=== PATIENT | male | born 1965 | race African-American/Black ===

== ENCOUNTER 2020-09-12 08:56 | Inpatient (IN) | payer OTHER ==
[2020-09-12] MEDS ORDERED: IBUPROFEN 400 MG TABLET (FP) PO PRN (09:56)
[2020-09-12] MEDS ORDERED: MAG HYDROX/AL HYDROX/SIMETH 30 ML UNIT-DOSE CUP PO PRN (09:56)
[2020-09-12] MEDS ORDERED: NICOTINE 10 MG CARTRIDGE (INHALER) IH PRN (09:56)
[2020-09-12] MEDS ORDERED: MAGNESIUM CITRATE 300 ML BOTTLE PO PRN (09:56)
[2020-09-12] MEDS ORDERED: MAGNESIUM HYDROX 2400MG/30ML ORAL SUSPENSION 30 ML CUP PO PRN (09:56)
[2020-09-12] MEDS ORDERED: BISMUTH SUBSALICYLATE 262 MG/15 ML BTL PO PRN (09:56)
[2020-09-12] MEDS ORDERED: ACETAMINOPHEN 325 MG TABLET (FP) PO PRN ×2 (09:56)
[2020-09-12] MEDS ORDERED: MENTHOL/PHENOL 1 EACH UD MM PRN (09:56)
[2020-09-12] MEDS ORDERED: ONDANSETRON *ODT* 4 MG TABLET SL PRN (09:56)
[2020-09-12] MEDS ORDERED: METHOCARBAMOL 500 MG TABLET PO PRN (09:56)
[2020-09-12 09:57] VITALS: BMI 39.2
[2020-09-12] MEDS ORDERED: PRENATAL VITAMINS W/ FOLIC ACID TABLET (FP) PO SCH (10:00)
[2020-09-12] MEDS ORDERED: methaDONE HCL 10 MG TABLET PO SCH (10:15)
[2020-09-12] MEDS ORDERED: diazePAM 5 MG TABLET ONE ×2 (10:32→14:51)
[2020-09-12] MEDS: diazePAM 5 MG TABLET PO PRN ×2 (10:35→14:52)
[2020-09-12] MEDS ORDERED: methaDONE HCL 10 MG TABLET PO ONE (11:31)
[2020-09-12] MEDS ORDERED: methaDONE HCL 10 MG TABLET ONE (11:44)
[2020-09-12] MEDS ORDERED: methaDONE HCL 40 MG DISPERSABLE TABLET ONE (11:45)
[2020-09-12] MEDS: diazePAM 5 MG TABLET PO SCH ×3 (11:53→23:16)
[2020-09-12] MEDS: hydrOXYzine PAMOATE 25 MG CAPSULE (FP) PO SCH ×4 (11:54→23:16)
[2020-09-12 13:25] LABS: HEMATOCRIT 40.6 % (35.4-49); MCHC 34.6 g/dl (32.0-35.9); MEAN CELL VOLUME 95.5 fl (80-96); PLATELET COUNT 270 10^3/uL (134-434); RBC 4.26 M/mm3 (4.00-5.60); RDW 14.3 % (11.9-15.9); WHITE BLOOD COUNT 5.5 K/mm3 (4.0-10.0)
[2020-09-12 13:41] LABS: ALBUMIN 3.8 g/dl (3.4-5.0); BLOOD UREA NITROGEN 3.7 mg/dL (7-18); CALCIUM 7.8 mg/dL (8.5-10.1)
[2020-09-12 13:44] LABS: BILIRUBIN,TOTAL 0.3 mg/dL (0.2-1); CREATININE 0.8 mg/dL (0.55-1.3); TOT PROT 7.6 g/dl (6.4-8.2)
[2020-09-12] MEDS ORDERED: hydrOXYzine PAMOATE 25 MG CAPSULE (FP) PO ONE (14:51)
[2020-09-12] MEDS ORDERED: NIFEdipine E.R. 90 MG TABLET PO SCH (16:00)
[2020-09-12] MEDS ORDERED: ASPIRIN 81 MG CHEWABLE TABLETS PO SCH (17:45)
[2020-09-12 18:07] VITALS: BP 201/101; PULSE 126; TEMP 96.2
[2020-09-12] MEDS ORDERED: QUEtiapine FUMARATE 50 MG TABLET PO SCH (22:00)
[2020-09-12] MEDS ORDERED: MELATONIN 5 MG TABLETS PO SCH (22:00)
[2020-09-12] MEDS ORDERED: THIAMINE HCL 100 MG TABLET (FP) PO SCH (22:00)
[2020-09-13] MEDS ORDERED: methaDONE HCL 10 MG TABLET PO SCH (06:00)
[2020-09-13] MEDS ORDERED: ONDANSETRON *ODT* 4 MG TABLET SL PRN (08:04)
[2020-09-13] MEDS ORDERED: ACETAMINOPHEN 325 MG TABLET (FP) PO PRN ×2 (08:04)
[2020-09-13] MEDS ORDERED: IBUPROFEN 400 MG TABLET (FP) PO PRN (08:04)
[2020-09-13] MEDS ORDERED: MENTHOL/PHENOL 1 EACH UD MM PRN (08:04)
[2020-09-13] MEDS ORDERED: BISMUTH SUBSALICYLATE 524 MG/30 ML PO PRN (08:04)
[2020-09-13] MEDS ORDERED: MAG HYDROX/AL HYDROX/SIMETH 30 ML UNIT-DOSE CUP PO PRN (08:04)
[2020-09-13] MEDS ORDERED: NICOTINE 10 MG CARTRIDGE (INHALER) IH PRN (08:04)
[2020-09-13] MEDS ORDERED: MAGNESIUM CITRATE 300 ML BOTTLE PO PRN (08:04)
[2020-09-13] MEDS ORDERED: MAGNESIUM HYDROX 2400MG/30ML ORAL SUSPENSION 30 ML CUP PO PRN (08:04)
[2020-09-13] MEDS ORDERED: diazePAM 5 MG TABLET PO PRN (08:04)
[2020-09-13] MEDS ORDERED: METHOCARBAMOL 500 MG TABLET PO PRN (08:04)
[2020-09-13] MEDS ORDERED: PRENATAL VITAMINS W/ FOLIC ACID TABLET (FP) PO SCH (10:00)
[2020-09-13] MEDS ORDERED: hydrOXYzine PAMOATE 25 MG CAPSULE (FP) PO SCH (10:00)
[2020-09-13] MEDS ORDERED: diazePAM 5 MG TABLET PO SCH (11:00)
[2020-09-13] MEDS ORDERED: MELATONIN 5 MG TABLETS PO SCH (22:00)
[2020-09-13] MEDS ORDERED: THIAMINE HCL 100 MG TABLET (FP) PO SCH (22:00)
[2020-09-14] MEDS ORDERED: diazePAM 5 MG TABLET PO SCH (06:00)
[2020-09-15] MEDS ORDERED: diazePAM 5 MG TABLET PO SCH ×2 (06:00)
[2020-09-16] MEDS ORDERED: diazePAM 5 MG TABLET PO ONE (06:00)
[2020-09-16] MEDS ORDERED: diazePAM 5 MG TABLET PO SCH (06:00)
[2020-09-17] MEDS ORDERED: diazePAM 5 MG TABLET PO ONE (06:00)
== END 2020-09-12 23:42 | disposition short-term general hospital (02) | DRG 773 ==
LOC: YASAS 08:56 → Y3N 14:32
PROVIDERS: ADMIT Allergy & Immunology; ATTEND Allergy & Immunology
PROC: HZ2ZZZZ Detoxification Services for Substance Abuse Treatment (ICD-10-PCS; principal; 2020-09-12)
DX: F10.230 Alcohol dependence with withdrawal, uncomplicated (principal); F11.20 Opioid dependence, uncomplicated; F17.210 Nicotine dependence, cigarettes, uncomplicated; F19.24 Other psychoactive substance dependence with psychoactive substance-induced mood disorder; F31.9 Bipolar disorder, unspecified; I10 Essential (primary) hypertension; E78.5 Hyperlipidemia, unspecified; G47.00 Insomnia, unspecified; R00.0 Tachycardia, unspecified; E66.9 Obesity, unspecified; Z68.39 Body mass index [BMI] 39.0-39.9, adult; Z86.69 Personal history of other diseases of the nervous system and sense organs; Z56.0 Unemployment, unspecified; Z59.0 Homelessness
CPT/HCPCS: 36415; 80053; 85027; 86780; 93005; 93010; C9803; U0003; U0005

== ENCOUNTER 2020-09-12 18:36 | Inpatient (IN) | payer OTHER ==
[2020-09-12 18:59] VITALS: BMI 38.4
[2020-09-12] MEDS ORDERED: LORazepam 2 MG/ML SDV VIAL IVPUSH ONE ×2 (19:14→21:02)
[2020-09-12] MEDS ORDERED: FOLIC ACID INJECTION - 1 MG, THIAMINE HCL 100 MG, MULTIVIT INJECTION ADULT 10 ML in SOD... IVPB ONE (19:14)
[2020-09-12] MEDS ORDERED: LORazepam 2 MG/ML SDV VIAL ONE ×2 (19:36→21:08)
[2020-09-12 19:53] LABS: BASO % 0.9 % (0-2.0); EOS % 0.2 % (0-4.5); HEMATOCRIT 41.4 % (35.4-49); HEMOGLOBIN 14.4 GM/dL (11.7-16.9); LYMPH % 16.2 % (8-40); MCH 32.4 pg (25.7-33.7); MCHC 34.8 g/dl (32.0-35.9); MEAN CELL VOLUME 93.1 fl (80-96); MEAN PLT VOLUME 6.7 fl (7.5-11.1); MONO % 4.1 % (3.8-10.2); NEUT % 78.6 % (42.8-82.8); PLATELET COUNT 243 10^3/uL (134-434); RBC 4.44 M/mm3 (4.00-5.60); WHITE BLOOD COUNT 6.5 K/mm3 (4.0-10.0)
[2020-09-12 20:12] LABS: CHLORIDE 100 mmol/L (98-107); SODIUM 138 mmol/L (136-145)
[2020-09-12 20:14] LABS: CALCIUM 8.6 mg/dL (8.5-10.1)
[2020-09-12 20:15] LABS: ALBUMIN 3.9 g/dl (3.4-5.0); ANION GAP 10 MMOL/L (8-16); BLOOD UREA NITROGEN 4.3 mg/dL (7-18); CO2 28 mmol/L (21-32); GLUCOSE,RANDOM 79 mg/dL (74-106); MAGNESIUM 1.6 mg/dL (1.8-2.4)
[2020-09-12 20:18] LABS: CREATININE 0.9 mg/dL (0.55-1.3); SGOT/AST 61 U/L (15-37)
[2020-09-12 20:19] LABS: BILIRUBIN,TOTAL 0.6 mg/dL (0.2-1); TOT PROT 8.1 g/dl (6.4-8.2)
[2020-09-12 20:38] LABS: ALK PHOS 213 U/L (45-117); SGPT/ALT 58 U/L (13-61)
[2020-09-12] MEDS ORDERED: MAGNESIUM SULF 50% (8.12 MEQ/2 ML-1 GM VIAL) IVPB ONE (21:27)
[2020-09-12] MEDS ORDERED: MAGNESIUM SULFATE IN WATER 2 GM/50 ML IVPB IVPB ONE (21:54)
[2020-09-12] MEDS ORDERED: NIFEdipine E.R. 90 MG TABLET PO ONE (22:12)
[2020-09-12] MEDS ORDERED: NIFEdipine E.R. 30 MG TABLET ONE (22:12)
[2020-09-12 22:13] LABS: PH,URINE >= 9.0 (5.0-8.0); URINE APPEARANCE CLEAR; URINE BILIRUBIN NEGATIVE (NEGATIVE); URINE COLOR YELLOW; URINE GLUCOSE (UA) NEGATIVE (NEGATIVE); URINE KETONE NEGATIVE (NEGATIVE); URINE LEUK ESTERASE NEGATIVE (NEGATIVE); URINE NITRITE NEGATIVE (NEGATIVE); URINE PROTEIN NEGATIVE (NEGATIVE); URINE UROBILINOGEN 0.2 mg/dL (0.2-1.0)
[2020-09-13] MEDS: LORazepam 2 MG/ML SDV VIAL IVPUSH PRN ×2 (00:37→04:49)
[2020-09-13] MEDS: LACTATED RINGERS SOLUTION 1,000 ML/1,000 ML INFUS.BAG IV SCH ×2 (00:40→04:34)
[2020-09-13] MEDS: THIAMINE HCL 200 MG/2 ML VIAL IVPB SCH ×2 (02:33→09:06)
[2020-09-13] MEDS ORDERED: [UNRECOGNIZED DRUG - OTHER] IVPB ONE (03:30)
[2020-09-13] MEDS ORDERED: THIAMINE HCL IVPB ONE (03:30)
[2020-09-13] MEDS ORDERED: FOLIC ACID IVPB ONE (03:30)
[2020-09-13] MEDS ORDERED: MULTIVIT IVPB ONE (03:30)
[2020-09-13] MEDS ORDERED: methaDONE HCL 40 MG DISPERSABLE TABLET ONE (07:49)
[2020-09-13] MEDS ORDERED: methaDONE HCL 10 MG TABLET ONE (07:50)
[2020-09-13] MEDS ORDERED: methaDONE HCL 10 MG TABLET PO ONE (08:00)
[2020-09-13 08:30] LABS: HEMATOCRIT 40.7 % (35.4-49); HEMOGLOBIN 14.2 GM/dL (11.7-16.9); MCH 32.9 pg (25.7-33.7); MCHC 34.9 g/dl (32.0-35.9); MEAN CELL VOLUME 94.4 fl (80-96); MEAN PLT VOLUME 7.2 fl (7.5-11.1); PLATELET COUNT 211 10^3/uL (134-434); RBC 4.32 M/mm3 (4.00-5.60); RDW 13.9 % (11.9-15.9)
[2020-09-13 08:48] LABS: ALBUMIN 3.3 g/dl (3.4-5.0); MAGNESIUM 2.2 mg/dL (1.8-2.4)
[2020-09-13 08:49] LABS: BLOOD UREA NITROGEN 4.8 mg/dL (7-18); CALCIUM 7.8 mg/dL (8.5-10.1)
[2020-09-13 08:51] LABS: CREATININE 0.7 mg/dL (0.55-1.3)
[2020-09-13 08:53] LABS: TOT PROT 6.8 g/dl (6.4-8.2)
[2020-09-13] MEDS: NIFEdipine E.R 60 MG TABLET PO SCH (09:06)
[2020-09-13] MEDS: DOCUSATE SODIUM 100 MG CAPSULE (FP) PO SCH ×2 (09:07→21:11)
[2020-09-13] MEDS: LORazepam 1 MG TABLET PO PRN ×4 (09:25→22:01)
[2020-09-13] MEDS ORDERED: LORazepam 1 MG TABLET PO ONE (10:00)
[2020-09-13] MEDS: POLYETHYLENE GLYCOL (HEALTHYLAX) 3350 17 GM PACKET PO SCH (10:15)
[2020-09-13] MEDS ORDERED: LORazepam 1 MG TABLET PO PRN (11:00)
[2020-09-13] MEDS: LORazepam 1 MG TABLET PO SCH ×3 (11:28→22:01)
[2020-09-13] MEDS ORDERED: SODIUM CHLORIDE 1,000 ML IV SCH (13:00)
[2020-09-13] MEDS ORDERED: GLYCERIN 1 RECTAL SUPPOSITORY, ADULT PR ONE ×2 (15:57→19:39)
[2020-09-13] MEDS ORDERED: amLODIPine BESYLATE 5 MG TABLET (FP) PO ONE ×2 (17:12→17:28)
[2020-09-13] MEDS: MELATONIN 5 MG TABLETS PO PRN (21:09)
[2020-09-13] MEDS: ATORVASTATIN CA 10 MG TABLET (FP) PO SCH (21:11)
[2020-09-13] MEDS ORDERED: NIFEdipine E.R. 90 MG TABLET PO ONE (21:35)
[2020-09-14] MEDS: LORazepam 1 MG TABLET PO SCH ×4 (05:11→22:09)
[2020-09-14] MEDS ORDERED: GLYCERIN 1 RECTAL SUPPOSITORY, ADULT PR ONE (06:44)
[2020-09-14] MEDS ORDERED: methaDONE HCL 40 MG DISPERSABLE TABLET ONE (07:51)
[2020-09-14] MEDS ORDERED: methaDONE HCL 10 MG TABLET ONE (07:51)
[2020-09-14 08:47] LABS: BASO % 0.5 % (0-2.0); HEMATOCRIT 41.7 % (35.4-49); HEMOGLOBIN 14.3 GM/dL (11.7-16.9); LYMPH % 34.7 % (8-40); MCH 32.7 pg (25.7-33.7); MCHC 34.3 g/dl (32.0-35.9); MEAN CELL VOLUME 95.3 fl (80-96); MEAN PLT VOLUME 7.5 fl (7.5-11.1); MONO % 7.8 % (3.8-10.2); PLATELET COUNT 206 10^3/uL (134-434); RBC 4.38 M/mm3 (4.00-5.60); RDW 13.9 % (11.9-15.9); WHITE BLOOD COUNT 5.1 K/mm3 (4.0-10.0)
[2020-09-14 09:09] LABS: MAGNESIUM 2.2 mg/dL (1.8-2.4)
[2020-09-14 09:13] LABS: PHOSPHOROUS 4.2 mg/dL (2.5-4.9)
[2020-09-14] MEDS ORDERED: PT OWN MED DRAWER 7, Y5N ONE ×2 (09:35→11:23)
[2020-09-14] MEDS: THIAMINE HCL 200 MG/2 ML VIAL IVPB SCH (09:45)
[2020-09-14] MEDS: NIFEdipine E.R 60 MG TABLET PO SCH (09:46)
[2020-09-14] MEDS: ENOXAPARIN NA (PORCINE) 40 MG/0.4 ML DISP.SYRIN SQ SCH (09:46)
[2020-09-14] MEDS: amLODIPine BESYLATE 5 MG TABLET (FP) PO SCH (09:46)
[2020-09-14] MEDS: DOCUSATE SODIUM 100 MG CAPSULE (FP) PO SCH ×2 (09:47→22:08)
[2020-09-14] MEDS: FOLIC ACID 1 MG TABLET (FP) PO SCH (09:47)
[2020-09-14] MEDS: POLYETHYLENE GLYCOL (HEALTHYLAX) 3350 17 GM PACKET PO SCH (09:47)
[2020-09-14] MEDS ORDERED: methaDONE HCL 10 MG TABLET PO ONE (10:00)
[2020-09-14] MEDS ORDERED: HYDROCHLOROTHIAZIDE 25 MG TABLET (FP) PO SCH (10:00)
[2020-09-14] MEDS ORDERED: amLODIPine BESYLATE 5 MG TABLET (FP) PO SCH (10:00)
[2020-09-14] MEDS: CYANOCOBALAMIN (VITAMIN B-12) 100 MCG TABLET PO SCH (11:28)
[2020-09-14 13:04] LABS: BLOOD UREA NITROGEN 7.6 mg/dL (7-18); CALCIUM 8.5 mg/dL (8.5-10.1)
[2020-09-14 13:09] LABS: CREATININE 0.8 mg/dL (0.55-1.3)
[2020-09-14] MEDS: SODIUM CHLORIDE 1,000 ML IV SCH (13:53)
[2020-09-14] MEDS: LORazepam 1 MG TABLET PO PRN (19:42)
[2020-09-14] MEDS: ATORVASTATIN CA 10 MG TABLET (FP) PO SCH (22:08)
[2020-09-15] MEDS: LORazepam 1 MG TABLET PO PRN ×3 (02:08→22:18)
[2020-09-15] MEDS ORDERED: methaDONE HCL 40 MG DISPERSABLE TABLET ONE (05:26)
[2020-09-15] MEDS ORDERED: methaDONE HCL 10 MG TABLET ONE (05:27)
[2020-09-15] MEDS: LORazepam 1 MG TABLET PO SCH ×4 (05:30→22:18)
[2020-09-15] MEDS ORDERED: GLYCERIN 1 RECTAL SUPPOSITORY, ADULT PR ONE (06:51)
[2020-09-15] MEDS ORDERED: PT OWN MED DRAWER 7, Y5N ONE (09:30)
[2020-09-15] MEDS: ENOXAPARIN NA (PORCINE) 40 MG/0.4 ML DISP.SYRIN SQ SCH (09:32)
[2020-09-15] MEDS: NIFEdipine E.R 60 MG TABLET PO SCH (09:32)
[2020-09-15] MEDS: POLYETHYLENE GLYCOL (HEALTHYLAX) 3350 17 GM PACKET PO SCH (09:32)
[2020-09-15] MEDS: THIAMINE HCL 100 MG TABLET (FP) PO SCH (09:33)
[2020-09-15] MEDS: FOLIC ACID 1 MG TABLET (FP) PO SCH (09:33)
[2020-09-15] MEDS: DOCUSATE SODIUM 100 MG CAPSULE (FP) PO SCH ×2 (09:33→21:29)
[2020-09-15] MEDS: amLODIPine BESYLATE 5 MG TABLET (FP) PO SCH (09:33)
[2020-09-15] MEDS: CYANOCOBALAMIN (VITAMIN B-12) 100 MCG TABLET PO SCH (09:33)
[2020-09-15 13:00] LABS: BASO % 0.9 % (0-2.0); EOS % 3.6 % (0-4.5); HEMATOCRIT 47.5 % (35.4-49); HEMOGLOBIN 16.1 GM/dL (11.7-16.9); LYMPH % 28.5 % (8-40); MCH 32.8 pg (25.7-33.7); MCHC 33.9 g/dl (32.0-35.9); MEAN CELL VOLUME 96.5 fl (80-96); MEAN PLT VOLUME 8.8 fl (7.5-11.1); PLATELET COUNT 179 10^3/uL (134-434); RBC 4.92 M/mm3 (4.00-5.60); RDW 14.4 % (11.9-15.9); WHITE BLOOD COUNT 6.3 K/mm3 (4.0-10.0)
[2020-09-15 13:08] LABS: CALCIUM 8.7 mg/dL (8.5-10.1)
[2020-09-15 13:09] LABS: ALBUMIN 3.6 g/dl (3.4-5.0); BLOOD UREA NITROGEN 11.5 mg/dL (7-18); MAGNESIUM 2.1 mg/dL (1.8-2.4)
[2020-09-15 13:12] LABS: CREATININE 0.8 mg/dL (0.55-1.3); PHOSPHOROUS 4.3 mg/dL (2.5-4.9)
[2020-09-15 13:13] LABS: TOT PROT 7.4 g/dl (6.4-8.2)
[2020-09-15] MEDS: SODIUM CHLORIDE 1,000 ML IV SCH (14:34)
[2020-09-15] MEDS: ATORVASTATIN CA 10 MG TABLET (FP) PO SCH (21:29)
[2020-09-15] MEDS: MELATONIN 5 MG TABLETS PO PRN (21:30)
[2020-09-16] MEDS ORDERED: methaDONE HCL 10 MG TABLET ONE (04:58)
[2020-09-16] MEDS ORDERED: methaDONE HCL 40 MG DISPERSABLE TABLET ONE (04:58)
[2020-09-16] MEDS: LORazepam 0.5 MG TABLET PO SCH ×4 (05:07→23:04)
[2020-09-16] MEDS: LORazepam 0.5 MG TABLET PO PRN ×2 (05:09→19:47)
[2020-09-16 07:11] LABS: BASO % 0.8 % (0-2.0); HEMATOCRIT 43.1 % (35.4-49); HEMOGLOBIN 14.4 GM/dL (11.7-16.9); LYMPH % 41.8 % (8-40); MCH 32.8 pg (25.7-33.7); MCHC 33.4 g/dl (32.0-35.9); MEAN CELL VOLUME 98.3 fl (80-96); MEAN PLT VOLUME 9.5 fl (7.5-11.1); MONO % 5.1 % (3.8-10.2); NEUT % 47.3 % (42.8-82.8); RBC 4.38 M/mm3 (4.00-5.60); RDW 14.2 % (11.9-15.9); WHITE BLOOD COUNT 3.9 K/mm3 (4.0-10.0)
[2020-09-16 07:12] LABS: PLATELET COUNT 11 10^3/uL (134-434)
[2020-09-16 07:16] LABS: ALBUMIN 3.4 g/dl (3.4-5.0); CALCIUM 8.4 mg/dL (8.5-10.1)
[2020-09-16 07:18] LABS: BLOOD UREA NITROGEN 12.7 mg/dL (7-18); MAGNESIUM 2.2 mg/dL (1.8-2.4)
[2020-09-16 07:20] LABS: CREATININE 0.8 mg/dL (0.55-1.3)
[2020-09-16 07:21] LABS: PHOSPHOROUS 4.5 mg/dL (2.5-4.9); TOT PROT 7.1 g/dl (6.4-8.2)
[2020-09-16] MEDS: DOCUSATE SODIUM 100 MG CAPSULE (FP) PO SCH ×2 (09:09→21:00)
[2020-09-16] MEDS: amLODIPine BESYLATE 5 MG TABLET (FP) PO SCH (09:10)
[2020-09-16] MEDS: NIFEdipine E.R 60 MG TABLET PO SCH (09:10)
[2020-09-16] MEDS: FOLIC ACID 1 MG TABLET (FP) PO SCH (09:10)
[2020-09-16] MEDS: POLYETHYLENE GLYCOL (HEALTHYLAX) 3350 17 GM PACKET PO SCH (09:10)
[2020-09-16] MEDS: THIAMINE HCL 100 MG TABLET (FP) PO SCH (09:10)
[2020-09-16] MEDS: ENOXAPARIN NA (PORCINE) 40 MG/0.4 ML DISP.SYRIN SQ SCH (09:10)
[2020-09-16] MEDS ORDERED: PT OWN MED DRAWER 7, Y5N ONE (09:18)
[2020-09-16] MEDS: CYANOCOBALAMIN (VITAMIN B-12) 100 MCG TABLET PO SCH (09:28)
[2020-09-16] MEDS ORDERED: BISACODYL 10 MG SUPP.RECT PR ONE (20:00)
[2020-09-16] MEDS: NICOTINE 14 MG/24 HOURS TOPICAL PATCH TD SCH (20:56)
[2020-09-16] MEDS: MELATONIN 5 MG TABLETS PO PRN (21:00)
[2020-09-16] MEDS: ATORVASTATIN CA 10 MG TABLET (FP) PO SCH (21:00)
[2020-09-17] MEDS ORDERED: methaDONE HCL 40 MG DISPERSABLE TABLET ONE (04:58)
[2020-09-17] MEDS ORDERED: methaDONE HCL 10 MG TABLET ONE (04:58)
[2020-09-17] MEDS ORDERED: LORazepam 0.5 MG TABLET PO ONE ×2 (05:00→15:35)
[2020-09-17 08:58] LABS: BASO % 0.4 % (0-2.0); EOS % 4.3 % (0-4.5); HEMATOCRIT 41.2 % (35.4-49); HEMOGLOBIN 14.2 GM/dL (11.7-16.9); LYMPH % 39.5 % (8-40); MCHC 34.5 g/dl (32.0-35.9); MEAN CELL VOLUME 95.6 fl (80-96); MONO % 9.1 % (3.8-10.2); NEUT % 46.7 % (42.8-82.8); PLATELET COUNT 168 10^3/uL (134-434); RBC 4.31 M/mm3 (4.00-5.60); RDW 14.2 % (11.9-15.9); WHITE BLOOD COUNT 5.6 K/mm3 (4.0-10.0)
[2020-09-17] MEDS ORDERED: PT OWN MED DRAWER 7, Y5N ONE (09:06)
[2020-09-17] MEDS: POLYETHYLENE GLYCOL (HEALTHYLAX) 3350 17 GM PACKET PO SCH ×2 (09:16→16:58)
[2020-09-17] MEDS: NICOTINE 14 MG/24 HOURS TOPICAL PATCH TD SCH (09:16)
[2020-09-17] MEDS: NIFEdipine E.R 60 MG TABLET PO SCH (09:16)
[2020-09-17] MEDS: FOLIC ACID 1 MG TABLET (FP) PO SCH (09:17)
[2020-09-17] MEDS: CYANOCOBALAMIN (VITAMIN B-12) 100 MCG TABLET PO SCH (09:17)
[2020-09-17] MEDS: DOCUSATE SODIUM 100 MG CAPSULE (FP) PO SCH ×2 (09:17→21:46)
[2020-09-17] MEDS: amLODIPine BESYLATE 5 MG TABLET (FP) PO SCH (09:17)
[2020-09-17] MEDS: THIAMINE HCL 100 MG TABLET (FP) PO SCH (09:17)
[2020-09-17 09:23] LABS: CALCIUM 9.2 mg/dL (8.5-10.1)
[2020-09-17 09:24] LABS: ALBUMIN 3.5 g/dl (3.4-5.0); BLOOD UREA NITROGEN 9.1 mg/dL (7-18); MAGNESIUM 2.2 mg/dL (1.8-2.4)
[2020-09-17 09:27] LABS: CREATININE 0.8 mg/dL (0.55-1.3); PHOSPHOROUS 4.6 mg/dL (2.5-4.9)
[2020-09-17 09:28] LABS: BILIRUBIN,TOTAL 0.4 mg/dL (0.2-1)
[2020-09-17] MEDS: GLYCERIN 1 RECTAL SUPPOSITORY, ADULT PR PRN (18:17)
[2020-09-17] MEDS ORDERED: LORazepam 2 MG/ML SDV VIAL IVPUSH PRN (18:28)
[2020-09-17 19:46] LABS: CREATININE 0.8 mg/dL (0.55-1.3)
[2020-09-17] MEDS: LORazepam 0.5 MG TABLET PO PRN (19:58)
[2020-09-17] MEDS ORDERED: QUEtiapine FUMARATE 25 MG TABLET PO SCH (20:00)
[2020-09-17] MEDS: ATORVASTATIN CA 10 MG TABLET (FP) PO SCH (21:46)
[2020-09-18] MEDS ORDERED: SIMETHICONE 80 MG TAB.CHEW (FP) PO PRN (01:33)
[2020-09-18] MEDS ORDERED: methaDONE HCL 40 MG DISPERSABLE TABLET ONE (05:08)
[2020-09-18] MEDS ORDERED: methaDONE HCL 10 MG TABLET ONE (05:09)
[2020-09-18] MEDS: GLYCERIN 1 RECTAL SUPPOSITORY, ADULT PR PRN (06:34)
[2020-09-18] MEDS ORDERED: PT OWN MED DRAWER 7, Y5N ONE (06:37)
[2020-09-18 09:24] VITALS: BP 162/105; PULSE 102; TEMP 98.5
[2020-09-18] MEDS: NIFEdipine E.R 60 MG TABLET PO SCH (09:25)
[2020-09-18] MEDS: CYANOCOBALAMIN (VITAMIN B-12) 100 MCG TABLET PO SCH (09:29)
[2020-09-18] MEDS: THIAMINE HCL 100 MG TABLET (FP) PO SCH (09:30)
[2020-09-18] MEDS: amLODIPine BESYLATE 5 MG TABLET (FP) PO SCH (09:30)
[2020-09-18] MEDS: DOCUSATE SODIUM 100 MG CAPSULE (FP) PO SCH (09:30)
[2020-09-18] MEDS: NICOTINE 14 MG/24 HOURS TOPICAL PATCH TD SCH (09:30)
[2020-09-18] MEDS: LORazepam 0.5 MG TABLET PO PRN (09:30)
[2020-09-18] MEDS: POLYETHYLENE GLYCOL (HEALTHYLAX) 3350 17 GM PACKET PO SCH (09:30)
[2020-09-18] MEDS: FOLIC ACID 1 MG TABLET (FP) PO SCH (09:30)
[2020-09-18] MEDS ORDERED: amLODIPine BESYLATE 5 MG TABLET (FP) PO SCH (09:51)
[2020-09-18] MEDS ORDERED: LISINOPRIL 10 MG TABLET PO SCH (10:00)
[2020-09-18] MEDS ORDERED: POLYETHYLENE GLYCOL (HEALTHYLAX) 3350 17 GM PACKET PO SCH (10:00)
[2020-09-18] MEDS ORDERED: LORazepam 0.5 MG TABLET PO ONE (12:42)
[2020-09-18] MEDS ORDERED: QUEtiapine FUMARATE 25 MG TABLET PO SCH (20:00)
== END 2020-09-18 14:12 | disposition other institution (70) | DRG 772 ==
LOC: JER 18:36 → JERBED 21:31 → J4S 09-13 00:20
PROVIDERS: ADMIT Internal Medicine; ATTEND Internal Medicine
PROC: HZ91ZZZ Pharmacotherapy for Substance Abuse Treatment, Methadone Maintenance (ICD-10-PCS; principal; 2020-09-12)
PROC: HZ2ZZZZ Detoxification Services for Substance Abuse Treatment (ICD-10-PCS; 2020-09-12)
DX: F10.239 Alcohol dependence with withdrawal, unspecified (principal); I16.0 Hypertensive urgency; E78.5 Hyperlipidemia, unspecified; F41.9 Anxiety disorder, unspecified; G25.2 Other specified forms of tremor; R51.9 Headache, unspecified; R11.0 Nausea; F11.20 Opioid dependence, uncomplicated; K59.00 Constipation, unspecified; F31.9 Bipolar disorder, unspecified; F17.210 Nicotine dependence, cigarettes, uncomplicated; E66.9 Obesity, unspecified; Z68.38 Body mass index [BMI] 38.0-38.9, adult
CPT/HCPCS: 36415; 71045-TC-FY; 80048; 80053; 80061; 81003; 82962; 83036; 83735; 84100; 84484; 85025; 85027; 93005; 93010; 97116-GP; 97161-GP; 99285-25; C9803; U0003; U0005